=== PATIENT | female | born 1935 | race Caucasian/White ===

== ENCOUNTER → 2016-10-22 | Outpatient (CLI) | payer MEDICARE, OTHER ==
[~2016-10-22] MED LIST: ACTOPLUS MET X1 EACH PO; ADVIL200 MG PO; ASPIRIN EC81 MG PO; CITRACAL+D(315M1 TAB PO; CYMBALTA30 MG PO; DAILY VALUE1 EACH PO; FISH OIL 1,0001 EAC1 PO; PRAVACHOL80 MG PO; RESTASIS1 EACH OPHTH; VICTOZA 2-0.6 MG/0.1 SUB-Q; VITAMIN D1000 UNIT PO
== END | disposition disaster alternative care site (69) ==
LOC: GRAD 07:11
DX: M54.5 Low back pain (principal); M47.894 Other spondylosis, thoracic region; S32.019D Unspecified fracture of first lumbar vertebra, subsequent encounter for fracture with routine healing; W19.XXXD Unspecified fall, subsequent encounter

== ENCOUNTER → 2016-10-28 | Outpatient (CLI) | payer MEDICARE, OTHER | END | disposition disaster alternative care site (69) | LOC: GRAD 09:33 | DX: S32.019A Unspecified fracture of first lumbar vertebra, initial encounter for closed fracture (principal); S33.140A Subluxation of L4/L5 lumbar vertebra, initial encounter; M47.896 Other spondylosis, lumbar region; M43.8X6 Other specified deforming dorsopathies, lumbar region; X58.XXXA Exposure to other specified factors, initial encounter ==

== ENCOUNTER → 2016-11-03 | Outpatient (CLI) | payer MEDICARE, OTHER ==
[2016-11-03 15:22] LABS: BASOPHIL # 0.1 K/uL (0.0-0.2); BASOPHIL % 0.6 %; EOSINOPHIL # 0.2 K/uL (0.0-0.5); EOSINOPHIL % 2.4 %; HEMATOCRIT 41.7 % (30.0-46.0); HEMOGLOBIN 14.1 g/dL (10.0-15.0); IMMATURE GRANULOCYTE # 0.1 K/uL (0.0-0.3); IMMATURE GRANULOCYTE % 0.6 %; LYMPHOCYTE # 2.5 K/uL (0.8-4.0); LYMPHOCYTE % 27.3 %; MCH 30.1 pg (27.0-34.0); MCHC 33.8 gm/dL (32.0-36.5); MCV 88.9 fl (83.0-98.0); MONOCYTE # 0.9 K/uL (0.0-1.0); MONOCYTE % 9.9 %; MPV 9.3 fl (9.4-12.4); NEUTROPHIL # (ANC) 5.3 K/uL (1.8-7.8); NEUTROPHIL % 59.2 %; NRBC % 0 /100WBC (0-0.00); PLATELET COUNT 330 K/uL (150-450); RBC 4.69 M/uL (3.00-5.00); RDW-CV 13.2 % (11.9-14.6)
[2016-11-03 15:33] LABS: INR - (THERAPEUTIC) 0.96 (0.92-1.07); PROTIME 10.1 SECONDS (9.8-11.4)
[2016-11-03 15:42] LABS: ALBUMIN 3.4 gm/dL (3.5-5.0); ANION GAP 9.7 (10.0-19.0); CALCIUM 9.1 mg/dL (8.5-10.5); CREATININE 0.9 mg/dL (0.5-1.1); PHOSPHORUS 3.2 mg/dL (2.5-4.9); POTASSIUM 3.7 mMol/L (3.7-5.1)
== END | disposition disaster alternative care site (69) ==
LOC: GOPD 10-30
PROVIDERS: Neurological Surgery
PROC: 0QS03ZZ Reposition Lumbar Vertebra, Percutaneous Approach (ICD-10-PCS; principal; 2016-11-03)
PROC: 0QU03JZ Supplement Lumbar Vertebra with Synthetic Substitute, Percutaneous Approach (ICD-10-PCS; 2016-11-03)
DX: S32.010A Wedge compression fracture of first lumbar vertebra, initial encounter for closed fracture (principal); X58.XXXA Exposure to other specified factors, initial encounter
CPT/HCPCS: C1713; J0690; J2001; J7030